=== PATIENT | male | born 1995 | race Caucasian/White ===

== ENCOUNTER 2016-04-30 16:06 | Emergency (ER) | payer OTHER ==
[~2016-04-30] VITALS: Ht 180.3 cm; Wt 74.8 kg
[~2016-04-30 16:06] MED LIST: ACET-1256 PO; CITA20TA9 PO; MULT-506 PO
[2016-04-30 16:10] VITALS: TEMP 36.9; Ht 180.3 cm; Wt 74.8 kg
--- NOTE | 2016-04-30 17:16 | DIAGNOSTIC IMAGING REPORT ---
CT OF THE HEAD WITHOUT CONTRAST CLINICAL HISTORY: Head and facial injury. COMPARISON STUDY: Head CT January 08, 2016. CT DOSE: 838.37 mGy.cm TECHNIQUE: Helical axial images of the head were obtained without IV contrast. Automated exposure control was utilized for the study. FINDINGS: No acute intracranial hemorrhage, midline shift or mass effect is present. Brain volume is normal. Ventricular system is normal. The basilar cisterns are patent. There are no extra-axial collections. Torres-white differentiation is maintained. There is no calvarial fracture. IMPRESSION: 1. No acute intracranial findings. 2. No calvarial fracture. Electronically signed by: Aba De Leon M.D. 04/30/2016 5:15 PM Dictated Date/Time: 04/30/2016 5:12 PM
--- NOTE | 2016-04-30 17:20 | DIAGNOSTIC IMAGING REPORT ---
MAXILLOFACIAL CT WITHOUT CONTRAST CLINICAL HISTORY: Head and facial injury. COMPARISON STUDY: Maxillofacial CT January 08, 2016. TECHNIQUE: A maxillofacial CT was performed without IV contrast. Coronal and sagittal reformats were viewed. FINDINGS: There are mildly displaced bilateral nasal bone fractures which were shown on CT of January 08, 2016. Fracture alignment has improved since that exam. There may also be a healing fracture of the bony nasal septum. No additional facial fractures are identified. There is a mucous retention cyst within left maxillary sinus. There is mild mucosal thickening of the remainder of the sinuses. Mastoid air cells are clear. There is no skull base fracture or fracture within visualized portions of the upper cervical spine. Orbital floors are intact. IMPRESSION: 1. No acute facial fracture. 2. Mildly displaced bilateral nasal bone fractures, as shown on CT of January 08, 2016. Interval in improvement in fracture alignment since prior exam Electronically signed by: Aba De Leon M.D. 04/30/2016 5:19 PM Dictated Date/Time: 04/30/2016 5:15 PM
--- NOTE | 2016-04-30 17:33 | EMERGENCY ROOM VISIT NOTE ---
ED Visit Note First contact with patient: 16:20 CHIEF COMPLAINT: Head injury HISTORY OF PRESENT ILLNESS: This 20-year-old male patient presented to the emergency department after receiving a head injury last night. The patient was drinking alcohol for State [employer] day yesterday, and does not remember his mechanism of injury. The patient states that he was able to sleep this morning , and when he woke up he felt a lump on his head. He has a mild headache but no other significant complaints. He does not have vision changes, lightheadedness, dizziness, neck pain, nausea, or vomiting. He rates his discomfort a 4/10. REVIEW OF SYSTEMS: A 10 system review of systems was performed with positives and pertinent negatives listed in the history of present illness. All other systems were reviewed and are negative. ALLERGIES: No known allergies MEDICATIONS: No chronic medications PMH: Otherwise healthy SOCIAL HISTORY: [employer] student who lives locally PHYSICAL EXAM: Vital Signs: Reviewed Nurse's notes, vital signs stable. GENERAL : Male, in no acute distress, well-developed, well-nourished. NEURO: The patient is alert, oriented to person place and time, and coherent. Normal mini mental status exam. Negative Romberg and pronator drift. Cerebellar function intact. HEAD: There is a 4 cm diameter right occipital hematoma noted with overlying superficial abrasion. EYES: Pupils are equal round and reactive to light and accommodation. EOMs are full and optic discs and fundi are normal. There is no swelling or discoloration of the tissue surrounding the eyes. EARS : External auditory canals clear without blood. NOSE: Patent without tenderness. No septal hematoma. FACE: No facial bone tenderness, although there is bruising over the left maxillary sinus. NECK: Supple. There is no cervical spine tenderness. The patient does not have tenderness with movement of the neck. CT OF THE HEAD WITHOUT CONTRAST CLINICAL HISTORY: Head and facial injury. COMPARISON STUDY: Head CT January 08, 2016. CT DOSE: 838.37 mGy.cm TECHNIQUE: Helical axial images of the head were obtained without IV contrast. Automated exposure control was utilized for the study. FINDINGS: No acute intracranial hemorrhage, midline shift or mass effect is present. Brain volume is normal. Ventricular system is normal. The basilar cisterns are patent. There are no extra-axial collections. Torres-white differentiation is maintained. There is no calvarial fracture. IMPRESSION: 1. No acute intracranial findings. 2. No calvarial fracture. MAXILLOFACIAL CT WITHOUT CONTRAST CLINICAL HISTORY: Head and facial injury. COMPARISON STUDY: Maxillofacial CT January 08, 2016. TECHNIQUE: A maxillofacial CT was performed without IV contrast. Coronal and sagittal reformats were viewed. FINDINGS: There are mildly displaced bilateral nasal bone fractures which were shown on CT of January 08, 2016. Fracture alignment has improved since that exam. There may also be a healing fracture of the bony nasal septum. No additional facial fractures are identified. There is a mucous retention cyst within left maxillary sinus. There is mild mucosal thickening of the remainder of the sinuses. Mastoid air cells are clear. There is no skull base fracture or fracture within visualized portions of the upper cervical spine. Orbital floors are intact. IMPRESSION: 1. No acute facial fracture. 2. Mildly displaced bilateral nasal bone fractures, as shown on CT of January 08, 2016. Interval in improvement in fracture alignment since prior exam ED COURSE: Physical exam and history were performed. Nursing notes and EMR were reviewed. The patient appears to have suffered a head injury last night after drinking alcohol. The patient is unsure of the mechanism of injury. He does not have neck or chest pain. CT scan of the head and face were performed and did not show evidence of acute fracture or significant traumatic findings. Overall the patient appears stable for discharge home. He was asked to follow with [facility] this week for further care and management. He was otherwise invited back to the ER with any new, worsening, or concerning symptoms. Current/Historical Medications Scheduled Citalopram Hydrobromide (Celexa), 20 MG PO QAM Multivitamin (Multivitamin), 1 TAB PO QAM Scheduled PRN Acetaminophen (Tylenol), 1,000 MG PO Q8H PRN for Pain Allergies Coded Allergies: No Known Allergies (Unverified , 04/30/16) Vital Signs Date Time Temp Pulse Resp B/P Pulse Ox O2 Delivery O2 Flow Rate FiO2 04/30/16 16:10 36.9 90 16 126/61 97 Room Air Departure Information Impression Primary Impression: Closed head injury Dispostion Home / Self-Care Condition GOOD Forms HOME CARE DOCUMENTATION FORM, IMPORTANT VISIT INFORMATION Patient Instructions My [facility] Additional Instructions You were seen and evaluated today on an emergency basis only. This is not a substitute for, or an effort to provide, complete comprehensive medical care. It is not possible to recognize and treat all injuries or illnesses in a single emergency department visit. For this reason it is recommended that you followup with [facility] this week with any ongoing or persistent symptoms. For baseline pain relief you may alternate ibuprofen and acetaminophen every 4 hours for pain control. Take 600 mg ibuprofen (Advil) and then 4 hours later take 1000 mg acetaminophen (Tylenol). Do not take more than 3000 mg acetaminophen in a single day. You are welcome to return to the emergency department anytime with new, worsening, or concerning symptoms.
[2016-04-30 17:40] VITALS: BP 143/61; PULSE 83; O2SAT 97
== END 2016-04-30 17:40 | disposition home or self-care (01) ==
LOC: C.EDB 16:07 → C.EDD 17:40
DX: S09.90XA Unspecified injury of head, initial encounter (principal); X58.XXXA Exposure to other specified factors, initial encounter